=== PATIENT | female | born 1990 | race Two or more races ===

== ENCOUNTER 2018-07-26 08:45 | Observation (INO) | payer OTHER ==
[~2018-07-26] VITALS: Ht 177.8 cm; Wt 64.0 kg
[2018-07-26] VITALS (16 sets, daily range): BP systolic 107–138; BP diastolic 58–95
[~2018-07-26 08:45] MED LIST: Dexamethasone 20mg/5ml IVP ONE; ceFAZolin sod 1 GM in NS 55 ML IVPB ONE
[2018-07-26] MEDS ORDERED: LR 1000ml 1,000 ML IVLG SCH (08:50)
[2018-07-26] MEDS ORDERED: Acetaminophen (Non formulary) 100 ML IV ONE (09:00)
[2018-07-26] MEDS ORDERED: Hydromorphone 0.5mg/0.5ml inj IVP PRN (09:00)
[2018-07-26] MEDS ORDERED: LORazepam Inj 2mg/ml 1ml IV PRN (09:00)
[2018-07-26] MEDS ORDERED: Metoclopramide 10mg/2ml Inj IVP PRN (09:00)
[2018-07-26] MEDS ORDERED: HYDROcodone/Acetamin 5/325 tab ORAL PRN (09:00)
[2018-07-26] MEDS ORDERED: HYDROcodone/Acetamin 7.5/325 tab ORAL PRN (09:00)
[2018-07-26] MEDS ORDERED: Midazolam 2mg/2ml Inj IVP PRN (09:00)
[2018-07-26] MEDS ORDERED: Meperidine 50mg/ml Inj(FOR RIGORS ONLY) IVP PRN (09:00)
[2018-07-26] MEDS ORDERED: DiphenhydrAMINE 50mg/ml Inj IVP PRN (09:00)
[2018-07-26] MEDS ORDERED: Atropine Sulfate 0.4mg/ml inj IVP PRN (09:00)
[2018-07-26] MEDS ORDERED: Ketorolac 30mg Inj IV PRN ×2 (09:00)
[2018-07-26] MEDS ORDERED: oxyCODONE HCL/Acetaminophen 5/325mg ORAL PRN (09:00)
[2018-07-26] MEDS ORDERED: Labetalol 5mg/ml 20ml vial IV PRN (09:00)
[2018-07-26] MEDS ORDERED: fentaNYL 100 mcg/2 mL IV PRN (09:00)
[2018-07-26] MEDS ORDERED: Sodium Chloride 10ml vial INJ ONE (09:14)
[2018-07-26] MEDS ORDERED: Lidocaine 1% MPF 10mg/ml 5ml ONE ×2 (09:14→11:27)
[2018-07-26] MEDS ORDERED: NKM (09:16)
[2018-07-26] MEDS ORDERED: Bacitracin 50000 Units Vial ONE (09:19)
[2018-07-26] MEDS ORDERED: Gelfoam Size TOPIC ONE (09:19)
[2018-07-26] MEDS ORDERED: Thrombin 5000 units TOPIC ONE (09:19)
--- NOTE | 2018-07-26 09:19 | Pre-Procedure Note/Attestation ---
Pre-Procedure Note/Attestation Complete Prior to Procedure Planned Procedure: not applicable Procedure Narrative: ACDF possible ACDF C5-C6 Indications for Procedure Pre-Operative Diagnosis: Trauma Cervical HNP radiculopathy Attestation I attest that I discussed the nature of the procedure; its benefits; risks and complications; and alternatives (and the risks and benefits of such alternatives ), prior to the procedure, with the patient (or the patient's legal digital sales representative). I attest that, if there was a reasonable possibility of needing a blood transfusion, the patient (or the patient's legal digital sales representative) was given the [facility] standardized written summary, pursuant to the Jamal Colp Blood Safety Act ([place] Health and Safety Code # 1645, as amended). I attest that I re-evaluated the patient just prior to the surgery and that there has been no change in the patient's H&P, except as documented below: Karl Lynn MD July 26, 2018 09:19
--- NOTE | 2018-07-26 09:25 | NUR ---
IV LR WAS STARTED BY SHIV PRITCHARD RN. NO S/S OF INFILTRATION.
[2018-07-26] MEDS ORDERED: Chloraseptic Spray 20mL Bottle ORAL PRN (09:30)
[2018-07-26] MEDS ORDERED: Morphine Sulfate 2mg/ml Inj(IV/IM USE ONLY) IM PRN (09:30)
[2018-07-26] MEDS ORDERED: HYDROcodone/Acetamin 10/325 tab ORAL PRN (09:30)
[2018-07-26] MEDS ORDERED: Dexamethasone 20mg/5ml ONE (09:31)
[2018-07-26 09:33] LABS: APPEARANCE,URINE CLOUDY; BILIRUBIN, URINE NEGATIVE (NEGATIVE); GLUCOSE, URINE (UA) NEGATIVE (NEGATIVE); KETONES,URINE NEGATIVE (NEGATIVE); LEUKOCYTE ESTERASE ,URINE 3+ (NEGATIVE); NITRITE,URINE NEGATIVE (NEGATIVE); PH,URINE 5 (4.5-8.0); PROTEIN,URINE NEGATIVE (NEGATIVE); UROBILINOGEN,URINE NORMAL MG/DL (0.0-1.0)
[2018-07-26 09:35] LABS: COLOR,URINE YELLOW
[2018-07-26] MEDS ORDERED: Zemuron 50mg/5ml Inj IV ONE (09:35)
[2018-07-26] MEDS ORDERED: Lidocaine 1% Plain 30 ml INJ ONE (09:37)
[2018-07-26] MEDS ORDERED: fentaNYL 100 mcg/2 mL IV ONE ×3 (09:38→12:13)
[2018-07-26] MEDS ORDERED: Labetalol 5mg/ml 20ml vial IV ONE (09:45)
[2018-07-26] MEDS ORDERED: LR 1000ml ONE (09:45)
[2018-07-26] MEDS ORDERED: Sterile Water Irrig 1000ml IRRIG ONE ×2 (09:45→13:00)
[2018-07-26] MEDS ORDERED: NS Irrig 1000ml ONE ×2 (09:45→13:00)
--- NOTE | 2018-07-26 10:24 | Anethesia Preoperative Eval ---
Anesthesia Pre-op PMH/ROS General Date of Evaluation: July 26, 2018 Time of Evaluation: 09:41 Anesthesiologist: Pao ASA Score: ASA 1 Mallampati Score Class I : Soft palate, uvula, fauces, pillars visible Class II: Soft palate, uvula, fauces visible Class III: Soft palate, base of uvula visible Class IV: Only hard plate visible Mallampati Classification: Class I Surgeon: Leah Diagnosis: Neck Pain Surgical Procedure: ADR C5-6 Anesthesia History: none Family History: no anesthesia problems Allergies: Coded Allergies: No Known Allergies (Unverified , 07/24/18) Medications: see eMAR Patient NPO?: Yes NPO Date: July 25, 2018 NPO Time: 9 Past Medical History Neurologic/Psychiatric: Reports: depression/anxiety, other - Migranes Anesthesia Pre-op Phys. Exam Physician Exam Last Vital Signs Date Time Temp Pulse Resp B/P (MAP) Pulse Ox O2 Delivery O2 Flow Rate FiO2 07/26/18 09:37 97.7 62 20 111/69 (83) 99 07/26/18 09:25 Room Air Constitutional: NAD Neurologic: CN 2-12 intact Cardiovascular: RRR Respiratory: CTA Gastrointestinal: S/NT/ND Airway Exam Mallampati Score: Class I MO: full ROM: limited Teeth: intact Anesthesia Pre-op A/P Labs Urine Test Test 07/26/18 08:55 Urine HCG, Qualitative Negative (NEGATIVE) Risk Assessment & Plan Assessment: ASA 1 Plan: GA, SED, GlideScope Go Status Change Before Surgery: No Pre-Antibiotics Dru Grams Ancef IV Given Within 1 Hr of Incision: Yes Time Given: 10:01 Trey Cedeno MD July 26, 2018 10:24
--- NOTE | 2018-07-26 10:30 | Immediate Post-Op Evaluation ---
Immediate Post-Op Evalulation Immediate Post-Op Evalulation Procedure: ADR C5-6 Date of Evaluation: July 26, 2018 Time of Evaluation: 12:38 IV Fluids: 1000 LR Blood Products: 0 Estimated Blood Loss: 55 Urinary Output: 0 Blood Pressure Systolic: 138 Blood Pressure Diastolic: 95 Pulse Rate: 77 Respiratory Rate: 16 O2 Sat by Pulse Oximetry: 100 Temperature (Fahrenheit): 97 Pain Score (1-10): 2 Nausea: No Vomiting: No Complications 0 Patient Status: awake, reacts, patent, extubated, none Hydration Status: adequate Dru grams Ancef IV Given Within 1 Hr of Incision: Yes Time Given: 10:01 Trey Cedeno MD July 26, 2018 10:30
[2018-07-26] MEDS ORDERED: Neostigmine 1mg/ml 10ml Inj ONE (11:42)
[2018-07-26] MEDS ORDERED: Glycopyrrolate 0.2mg/ml 1ml Vial ONE (11:42)
[2018-07-26] MEDS ORDERED: Naloxone 0.4mg/ml Inj ONE (11:49)
--- NOTE | 2018-07-26 12:06 | Brief Operative Note ---
Immediate Post Operative Note Operative Note Pre-op Diagnosis: Trauma Cervical HNP radiculopathy Procedure: ADR C5-C6 SSEP Magnification Xray Post-op Diagnosis: same as pre-op Findings: consistent w/pre-op dx studies Surgeon: Leah LYMAN [employer]: Christine AVELAR Anesthesiologist: Pao LYMAN Anesthesia: general Specimen: yes Complications: none Condition: stable Fluids: anesthesia Estimated Blood Loss: minimal Drains: none Implant(s) used?: Yes Karl Lynn MD July 26, 2018 12:06
[2018-07-26] MEDS ORDERED: Naloxone 0.4mg/ml Inj IVP PRN (12:15)
--- NOTE | 2018-07-26 13:45 | NUR ---
NURSE NOTES: Patient received from PACU via bed to 318-1 on O2 2LNC. Patient alert, oriented x4, calm. VSS. Anterior neck surgical site dressing CDI, ice pack in place. Bilateral SCDs on. CMS+, skin warm, wiggles toes, pedal pulses palpable, no NT, capillary refill <3 seconds, hand grasps equal/strong, pedal pushes fair 3/5, equal. Reports pain to anterior/posterior neck 8/10, will medicate as ordered. Called RT for IS. No NV. Sister at bedside. Oriented patient to room and call light. IVF infusing to left wrist as ordered. Call light in reach, bed in lowest position, will continue to monitor.
[2018-07-26] MEDS ORDERED: D5 1/2NS 1000ml IV ONE (13:48)
[2018-07-26] MEDS ORDERED: Tubing IV Secondary IV ONE (13:48)
[2018-07-26] MEDS ORDERED: Dronabinol 2.5mg Cap ORAL SCH ×4 (14:00→22:00)
[2018-07-26] MEDS ORDERED: D5 1/2NS 1,000 ML IV SCH (14:00)
--- NOTE | 2018-07-26 14:00 | NUR ---
NURSE NOTES: Patient refused to have pain medication prescription bottle, [place] 10 mg, to be sent down to pharmacy, states her sister will hold it and she will not take any medication from that bottle.
--- NOTE | 2018-07-26 14:27 | Diagnostic Imaging Report ---
Indication: Intraoperative imaging Findings: 3 fluoroscopic views of the cervical spine were obtained. Localization image followed by anterior cervical discectomy and prosthesis placement at C5-6 noted. IMPRESSION: Intraoperative imaging
--- NOTE | 2018-07-26 15:30 | NUR ---
NURSE NOTES: Patient reports Morphine 4mg IM was not effective. Offered [place] 10 mg, patient refused. Provided ice pack to both anterior and posterior neck. Called Dr. Ruiz and Dr. Lynn for further instructions, awaiting manager of operations back.
--- NOTE | 2018-07-26 15:32 | NUR ---
CHARGE NURSE NOTES: Pt complaint of severe pain unrelieved by morphine. left message to Dr Ruiz, will await callback. JIMY Martinez made aware.
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
--- NOTE | 2018-07-26 18:15 | NUR ---
NURSE NOTES: Spoke with Dr. Ruiz. Reviewed administered PRN and scheduled medications, activity, diet, pain level/non-pharmacological measures. See new orders, will medicate as ordered. Patient instructed and provided written material on log rolling and proper body mechanics. Assisted patient to bathroom, gait steady. Voided y/cl urine without difficulty. Chloraseptic placed at bedside, instructed patient on use, verbalized understanding. Will continue to monitor.
[2018-07-26] MEDS ORDERED: HYDROmorphone 1mg/ml Carpuject SUBQ SCH (18:30)
--- NOTE | 2018-07-26 18:30 | Operative Note - Dictated ---
DATE OF OPERATION: 07/26/2018 SURGEON: Karl Lynn, Ph.D., M.D. AUTOMATIC FABRIC CUTTER: VALENTINO Arboleda ANESTHESIOLOGIST: Dr. Cedeno. ANESTHESIA: General anesthesia with intubation. 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 OPERATIVE PROCEDURES: 1. Anterior cervical artificial disk replacement, [employer]. 2. SSEP monitoring. 3. Intraoperative fluoroscopy interpreted by surgeon. 4. High-power magnification dissection. ESTIMATED BLOOD LOSS: Minimal. COMPLICATIONS: None. POSTOPERATIVE CONDITION: Good/stable. SPECIMENS: Disk fragments to pathology. DESCRIPTION OF PROCEDURE: The patient was brought to the operating room and in supine position, general anesthesia with intubation was induced. IV antibiotics, IV Decadron were administered 30 minutes prior to incision time. Incision level placement determined with placement of markers overlying the skin on the right side of the neck. Cross-table imaging obtained and interpreted by surgeon. Left side marked appropriately and sterilely prepped and draped free in usual sterile fashion. A transverse incision as previously marked was sharply placed through dermis and epidermis and skin fold left lateral. Electrocautery dissection through subcutaneous tissue. Platysmas muscle identified and isolated, transected in line with the incision. Blunt dissection medial to the left sternocleidomastoid muscle and medial to the carotid sheath through the deep cervical pretracheal fascia to the midline between the right and left longus colli muscles. Spinal needle bent at 90-degree angles to avoid penetration into the disk space greater than 3 mm, was placed under high-power magnification into the disk space. A cross-table imaging was obtained and interpreted by surgeon as correct level. Level was marked. Retractors placed deep to the longus coli muscles, were subperiosteal elevated, no greater than 3 mm in the mediolateral extent. Confirmation of interval with a needle replaced into the disk space undertaken. Annulotomy followed diskectomy to the posterior longitudinal ligament. Posterior longitudinal ligament resected with decompression of spinal cord. Foraminotomies. Denuding with [place] Bro bur dissection in combination with curettage of the endplates of cartilage. Subchondral bone maintained. Appropriate steps undertaken by manufacture for implantation of the cervical artificial disk. Trials were undertaken sequentially in depth. SSEP monitoring stable. Of note is that all trials contain stops to avoid over penetration. Appropriate prosthesis, floated, checked, implanted. Implant excellent in AP and lateral planes. Of note is that prior to appropriate cutting in preparation for artificial disk replacement insertion, guide was undertaken in the AP and lateral planes for midline. Imaging, AP and lateral revealed excellent positioning of a artificial disk. Wound was irrigated with antibiotic-containing saline. No obvious excoriation or laceration of vital structures. No CSF leak at any time during the procedure. FloSeal applied. Reapproximation sequentially of platysmas muscle and dermis/epidermis followed by surgical strips. Sterile bands applied, maintained in place with tape. The patient was awakened, extubated in the operating room, transported to postop recovery in good stable condition. Karl Lynn M.D. DR: ANGELA/NORMAN JOB#: [id number] CC:
[2018-07-26] MEDS: ceFAZolin sod 1 GM in D5W 55 ML IV SCH (18:33)
--- NOTE | 2018-07-26 19:15 | NUR ---
NURSE NOTES: Medicated with one time dose of Dilaudid 1 mg SQ and Marinol PO additional dose, pain 8/10 at this time. Ice packs replaced with fresh ice. Will continue to monitor.
--- NOTE | 2018-07-26 19:40 | NUR ---
NURSE NOTES: Received report from JIMY Martinez. Patient resting in bed, sister at bedside. Bed in low position, locked, side rails up x2. Call light within reach. Anterior neck dressing dry and intact. Will continue to monitor.
--- NOTE | 2018-07-26 19:45 | NUR ---
HAND-OFF: Report given to Deanna AHN.
--- NOTE | 2018-07-26 20:20 | NUR ---
NURSE NOTES Dr Ruiz called in to check on patient. Patient's pain is 8-9/10 at this moment, will give [place] as ordered. See eMAR.
[2018-07-26] MEDS: HYDROcodone/Acetamin 10/325 tab ORAL PRN (20:31)
--- NOTE | 2018-07-26 20:50 | NUR ---
NURSE NOTES: Dr Ruiz called in to follow up on patient. Notified that patient doesn't feel ready to go home just yet and that [place] was given. New orders were placed by Dr Ruiz shortly ago. Plan discussed: reassess pain and give Marinol at 2130 if patient is not drowsy. Soma and Dilaudid are also options to consider later tonight. See new MD orders.
[2018-07-26] MEDS: D5 1/2NS 1,000 ML IV SCH (21:01)
--- NOTE | 2018-07-26 21:30 | NUR ---
NURSE NOTES: Unable to withdraw 2130 scheduled pain med from [facility] at this time. Pharmacy notified, will re enter med.
--- NOTE | 2018-07-26 22:06 | NUR ---
NURSE NOTES: Patient resting in bed, respirations even, unlabored, 18 per min. Alert, awake and oriented. States her pain "is more like 13". Given Marinol per order. Icepack anterior and posterio neck. Patient using Chloraseptic spray as well for throat discomfort. Watching TV with sister. Will continue to monitor.
[2018-07-26] MEDS ORDERED: HYDROmorphone 1mg/ml Carpuject SUBQ PRN (22:30)
--- NOTE | 2018-07-26 23:16 | NUR ---
NURSE NOTES: Patient sitting in bed, icepack on anterior and posterior neck. Ambulated earlier to bathroom with assist, voided without difficulty. Daniel fairly well. States lowest pain is at 8 but comes up to 10 when she had to get up to bathroom. Resp 19, HR 62. Slightly drowsy, but easily awakened, will continue to assess. Patient also stated that would rather wait for next pain med.
[2018-07-27] VITALS: BP 112/67
[2018-07-27] MEDS: ceFAZolin sod 1 GM in D5W 55 ML IV SCH ×2 (01:33→09:28)
[2018-07-27] MEDS: HYDROcodone/Acetamin 10/325 tab ORAL PRN ×3 (01:35→11:12)
[2018-07-27 04:00] VITALS: BP 102/63
--- NOTE | 2018-07-27 04:49 | NUR ---
NURSE NOTES: Pt asleep, resp unlabored.
[2018-07-27] MEDS: D5 1/2NS 1,000 ML IV SCH ×2 (05:01→13:01)
[2018-07-27] MEDS: Dronabinol 2.5mg Cap ORAL SCH ×2 (05:42→13:12)
--- NOTE | 2018-07-27 06:32 | NUR ---
NURSE NOTES: Pt had nausea a couple of times during the night, no vomiting. No nausea at this time. Given [place] for pain 10/20. Patient doing incentive spirometer exercises. Will continue to monitor.
--- NOTE | 2018-07-27 06:47 | 48 Hour Post Anesthesia Eval ---
Post Anesthesia Evaluation Procedure: ADR C5-6 Date of Evaluation: July 27, 2018 Airway: patent Nausea: Yes Vomiting: No Pain Intensity: 0 Hydration Status: adequate Cardiopulmonary Status: at baseline Mental Status/LOC: patient returned to baseline Post-Anesthesia Complications: 0 Follow-up care needed: N/A - further care as per primary team Charmaine Corona MD July 27, 2018 06:47
--- NOTE | 2018-07-27 07:50 | NUR ---
NURSE NOTES: Received report from JIMY Huerta. Rounding done with outgoing nurse. Patient a/o x4 lying on the bed. Sister is at bedside. Denies any pain at this time. Patient stat she can go home this afternoon. Patient seen by Dr. Ruiz. Bed in lowest position, call light within reach. Will continue to monitor.
[2018-07-27 08:00] VITALS: BP 95/53
[2018-07-27 12:00] VITALS: BP 105/61
[2018-07-27] MEDS ORDERED: NORCO 10-325 T1 EACH ORAL (14:45)
--- NOTE | 2018-07-27 15:05 | NUR ---
NURSE NOTES: Discharge instruction was given. Belongings checked with pt and was given. Proper body mechanism instruction was given. IV line and arm band were removed. Patient discharged with sister in stable condition.
--- NOTE | 2018-07-27 16:15 | Progress Note ---
ACUTE PAIN MANAGEMENT PHYSICIAN PROGRESS NOTE DATE: 07/27/2018 MEDICATIONS: Medication administration record reviewed. Medications include IV fluids, Pepcid, antibiotics, and Marinol. PRN medications include Benadryl, Soma, Chloraseptic spray, Zofran, Mylanta, Phenergan, Tylenol, Narcan, [place], and Dilaudid. LABORATORY STUDIES: From yesterday, 07/26/2018 shows few bacteria, 3+ leukocyte esterase, negative nitrite. Vital signs - afebrile, pulse 60, respirations 16, blood pressure 102/63, oxygen saturation 100%. I spent over 60 minutes in consultation for the past 24 hours. I had multiple discussions with the night nurse, RNDeanna along with the day shift nurse, JIMY Lucas. After yesterday's cervical spine instrumentation surgery with artificial disc replacement at C5-C6, the patient was in severe pain. She was trialed on multiple doses of Dilaudid and [place]. She stated that her pain was excruciating and unrelieved. We trialed Chloraseptic spray, but still does not have any good relief. Therefore, the patient will remain in the hospital for more aggressive analgesic treatment. Serial dosing of Marinol, Dilaudid injections, [place] in varying tablets along with Soma were used. Finally her pain levels became more bearable. She has been able to move in and out of bed to the restroom. She is tolerating good oral intake especially with water. She has normal vital signs and was able to sleep for several hours with the increased analgesic regimen. I expect the patient should be able to discharge home later today. Her sister remains at the bedside providing good social support and also we will transport patient home. The surgical wound in her anterior neck appears clean and dry. There is normal postoperative swelling. The patient was counseled once again to stop smoking and to be wary not to over medicate with narcotics at home. The patient understood and agreed to comply. Umang Ruiz M.D. DR: RAJAT JOB#: [id number] CC:
== END 2018-07-27 15:05 | disposition home or self-care (01) ==
LOC: SUR 08:45 → 3E 13:47
DX: M50.122 Cervical disc disorder at C5-C6 level with radiculopathy (principal); F17.210 Nicotine dependence, cigarettes, uncomplicated; F12.90 Cannabis use, unspecified, uncomplicated; F32.9 Major depressive disorder, single episode, unspecified; F41.9 Anxiety disorder, unspecified
CPT/HCPCS: 22856; 36415; 72040; 76000; 81001; 81025; 86850; 86900; 86901; 87081; 87086; 96360; 96361; 96365; G0378; J0690; J1100; J1170; J2001; J2175; J2250; J2270; J2310; J2405; J2710; J3010; 94003; 94150

== ENCOUNTER 2019-04-26 05:10 | Observation (INO) | payer OTHER ==
[~2019-04-26] VITALS: Ht 177.8 cm; Wt 58.5 kg
[2019-04-26] VITALS (13 sets, daily range): BP systolic 91–127; BP diastolic 50–85
[~2019-04-26 05:10] MED LIST changes: -Dexamethasone 20mg/5ml IVP ONE; +NKM; +NORCO 10-325 T1 EACH ORAL; -ceFAZolin sod 1 GM in NS 55 ML IVPB ONE
[2019-04-26] MEDS ORDERED: Rocuronium Bromide 50mg/5ml Inj IV ONE (06:42)
[2019-04-26] MEDS ORDERED: Gelfoam Size TOPIC ONE (06:52)
[2019-04-26] MEDS ORDERED: Sodium Chloride 10ml vial INJ ONE (06:53)
[2019-04-26] MEDS ORDERED: Bupivacaine 0.5% Inj 30 ml vial INJ ONE (06:53)
[2019-04-26] MEDS ORDERED: Dexamethasone 4mg/ml vial ONE (06:53)
[2019-04-26] MEDS ORDERED: Bacitracin 50000 Units Vial ONE (06:53)
[2019-04-26] MEDS ORDERED: Lidocaine 1% MPF 10mg/ml 5ml ONE (06:53)
[2019-04-26] MEDS ORDERED: fentaNYL 100 mcg/2 mL IV ONE ×2 (06:54→08:08)
[2019-04-26] MEDS ORDERED: LR 1000ml 1,000 ML IVLG SCH (06:58)
[2019-04-26] MEDS ORDERED: Lidocaine 1% Plain 30 ml INJ ONE ×2 (06:59→08:48)
[2019-04-26] MEDS ORDERED: ceFAZolin sod 1 GM in NS 55 ML IVPB ONE (07:00)
[2019-04-26] MEDS ORDERED: Labetalol 5mg/ml 20ml vial IV ONE (07:00)
[2019-04-26] MEDS ORDERED: Propofol 1,000mg/ 100ml btl IV ONE (07:00)
[2019-04-26] MEDS ORDERED: Labetalol 5mg/ml 20ml vial IV PRN (07:00)
[2019-04-26] MEDS ORDERED: Atropine Sulfate 0.4mg/ml inj IVP PRN (07:00)
[2019-04-26] MEDS ORDERED: NS Irrig 1000ml ONE (07:00)
[2019-04-26] MEDS ORDERED: HYDROcodone/Acetamin 7.5/325 tab ORAL PRN (07:00)
[2019-04-26] MEDS ORDERED: Acetaminophen (Non formulary) 100 ML IV ONE (07:00)
[2019-04-26] MEDS ORDERED: Hydromorphone 0.5mg/0.5ml inj IVP PRN (07:00)
[2019-04-26] MEDS ORDERED: fentaNYL 100 mcg/2 mL IV PRN (07:00)
[2019-04-26] MEDS ORDERED: Meperidine 25mg/0.5ml Inj (FOR RIGORS ONLY) IV PRN (07:00)
[2019-04-26] MEDS ORDERED: Ketorolac 30mg Inj IV PRN ×2 (07:00)
[2019-04-26] MEDS ORDERED: LORazepam Inj 2mg/ml 1ml IV PRN (07:00)
[2019-04-26] MEDS ORDERED: Dexamethasone 20mg/5ml IVP ONE (07:00)
[2019-04-26] MEDS ORDERED: HYDROcodone/Acetamin 5/325 tab ORAL PRN (07:00)
[2019-04-26] MEDS ORDERED: oxyCODONE HCL/Acetaminophen 5/325mg ORAL PRN (07:00)
[2019-04-26] MEDS ORDERED: Midazolam 2mg/2ml Inj IVP PRN (07:00)
[2019-04-26] MEDS ORDERED: LR 1000ml ONE (07:00)
[2019-04-26] MEDS ORDERED: DiphenhydrAMINE 50mg/ml Inj IVP PRN (07:00)
[2019-04-26] MEDS ORDERED: Sterile Water Irrig 1000ml IRRIG ONE (07:00)
--- NOTE | 2019-04-26 07:01 | Anethesia Preoperative Eval ---
Anesthesia Pre-op PMH/ROS General Date of Evaluation: Apr 26, 2019 Time of Evaluation: 07:06 Anesthesiologist: Pao ASA Score: ASA 1 Mallampati Score Class I : Soft palate, uvula, fauces, pillars visible Class II: Soft palate, uvula, fauces visible Class III: Soft palate, base of uvula visible Class IV: Only hard plate visible Mallampati Classification: Class I Surgeon: Leah Diagnosis: Neck Pain Surgical Procedure: C5-6 ADR Removal, ACDF C5-6 Anesthesia History: none Family History: no anesthesia problems Allergies: Coded Allergies: No Known Allergies (Unverified , 07/24/18) Medications: see eMAR Patient NPO?: Yes NPO Date: Apr 25, 2019 NPO Time: 1230 Past Medical History Neurologic/Psychiatric: Reports: depression/anxiety, other - Migranes Anesthesia Pre-op Phys. Exam Physician Exam Last Vital Signs Date Time Temp Pulse Resp B/P (MAP) Pulse Ox O2 Delivery O2 Flow Rate FiO2 04/26/19 05:56 Room Air 04/26/19 05:45 98.1 73 18 119/85 (96) 98 Constitutional: NAD Neurologic: CN 2-12 intact Cardiovascular: RRR Respiratory: CTA Gastrointestinal: S/NT/ND Airway Exam Mallampati Score: Class I MO: full ROM: limited Teeth: intact Anesthesia Pre-op A/P Labs Urine Test Test 04/26/19 05:20 Urine HCG, Qualitative Negative (NEGATIVE) Risk Assessment & Plan Assessment: ASA 1 Plan: GA, SED, GlideScope Go Status Change Before Surgery: No Pre-Antibiotics Dru Grams Ancef IV Given Within 1 Hr of Incision: Yes Time Given: 07:31 Trey Cedeno MD Apr 26, 2019 07:01
--- NOTE | 2019-04-26 07:02 | Immediate Post-Op Evaluation ---
Immediate Post-Op Evalulation Immediate Post-Op Evalulation Procedure: C5-6 ADR Removal, ACDF C5-6 Date of Evaluation: Apr 26, 2019 Time of Evaluation: 10:14 IV Fluids: 700 LR Blood Products: 0 Estimated Blood Loss: 30 Urinary Output: 0 Blood Pressure Systolic: 125 Blood Pressure Diastolic: 77 Pulse Rate: 53 Respiratory Rate: 16 O2 Sat by Pulse Oximetry: 100 Temperature (Fahrenheit): 97.7 Pain Score (1-10): 3 Nausea: No Vomiting: No Complications 0 Patient Status: awake, reacts, patent, extubated, none Hydration Status: adequate Dru grams Ancef IV Given Within 1 Hr of Incision: Yes Time Given: 07:31 Trey Cedeno MD Apr 26, 2019 07:02
[2019-04-26] MEDS ORDERED: Thrombin 5000 units TOPIC ONE (07:10)
--- NOTE | 2019-04-26 07:26 | Pre-Procedure Note/Attestation ---
Pre-Procedure Note/Attestation Complete Prior to Procedure Planned Procedure: not applicable Procedure Narrative: ADR C5-C6 removal ACDF C5-C6 anterior plate %-C6 scar Indications for Procedure Pre-Operative Diagnosis: ADR displacement Attestation I attest that I discussed the nature of the procedure; its benefits; risks and complications; and alternatives (and the risks and benefits of such alternatives ), prior to the procedure, with the patient (or the patient's legal call center representative). I attest that, if there was a reasonable possibility of needing a blood transfusion, the patient (or the patient's legal call center representative) was given the [facility] standardized written summary, pursuant to the Ajmal Humptulips Blood Safety Act ([place] Health and Safety Code # 1645, as amended). I attest that I re-evaluated the patient just prior to the surgery and that there has been no change in the patient's H&P, except as documented below: Karl Lynn MD Apr 26, 2019 07:26
[2019-04-26] MEDS ORDERED: Glycopyrrolate 0.2mg/ml 1ml Vial ONE (09:15)
[2019-04-26] MEDS ORDERED: Neostigmine 1mg/ml 10ml Inj ONE (09:15)
[2019-04-26] MEDS ORDERED: Meperidine 50mg/ml Inj(FOR RIGORS ONLY) ONE (09:46)
--- NOTE | 2019-04-26 09:46 | Brief Operative Note ---
Immediate Post Operative Note Operative Note Pre-op Diagnosis: ADR displacement Procedure: C5-C6: Operation through scar Removal ADR ACDF Interbody device titanium anterior plate osteopromotive material SSEP Magnification Xray Post-op Diagnosis: same Post-op Diagnosis: same as pre-op Surgeon: Leah LYMAN Building Supervisor: Christine AVELAR Anesthesiologist: Pao LYMAN Anesthesia: general Specimen: yes Complications: none Condition: stable Fluids: anesthesia Estimated Blood Loss: minimal Drains: none Implant(s) used?: Yes Karl Lynn MD Apr 26, 2019 09:46
--- NOTE | 2019-04-26 10:01 | 48 Hour Post Anesthesia Eval ---
Post Anesthesia Evaluation Procedure: C5-6 ADR Removal, ACDF C5-6 Date of Evaluation: Apr 26, 2019 Time of Evaluation: 12:34 Blood Pressure Systolic: 121 0: 73 Pulse Rate: 67 Respiratory Rate: 18 Temperature (Fahrenheit): 98.2 O2 Sat by Pulse Oximetry: 100 Airway: patent Nausea: No Vomiting: No Pain Intensity: 3 Hydration Status: adequate Cardiopulmonary Status: Stable Mental Status/LOC: patient returned to baseline Follow-up Care/Observations: 0 Post-Anesthesia Complications: 0 Follow-up care needed: N/A Trey Cedeno MD Apr 26, 2019 10:01
--- NOTE | 2019-04-26 11:30 | NUR ---
NURSE NOTES: Kaur RN brought patient by bed in stable condition. Alert and oriented x4. Complain of pain 8/10 on surgical site and pain medication given by PACU nurse. Will continue to monitor. Skin intact and dry. Surgical dressing intact and dry. IV dressing intact and dry. Belonging given to family member. Bed lowest position. Call light within reach. Will continue to monitor.
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
[2019-04-26] MEDS: Morphine Sulfate 4mg/ml Inj (IV USE ONLY) IM PRN ×2 (12:37→16:10)
[2019-04-26] MEDS ORDERED: Dronabinol 2.5mg Cap ORAL SCH (13:00)
[2019-04-26] MEDS ORDERED: DiphenhydrAMINE 25mg Tab ORAL PRN (13:00)
[2019-04-26] MEDS ORDERED: HYDROmorphone 1mg/ml Carpuject SUBQ PRN (13:00)
[2019-04-26] MEDS ORDERED: HYDROcodone/Acetamin 10/325 tab ORAL PRN (13:00)
[2019-04-26] MEDS ORDERED: D5 1/2NS 1,000 ML IV SCH (13:00)
[2019-04-26] MEDS ORDERED: Chloraseptic Spray 20mL Bottle ORAL PRN (13:00)
--- NOTE | 2019-04-26 13:56 | NUR ---
PT EVALUATION NOTE Patient seen for initial evaluation. Patient presents with pain and impaired functional mobility s/p cervical surgery. Patient educated in cervical precautions and log roll technique for in/OOB. Patient required CGA/min assist for bed mobility and transfers, soft cervical collar when OOB. Patient with noted shaking of body in sitting and in standing with eyes closing. Patient unable to ambulate due to shaking, weakness and impaired standing balance. Patient will benefit from skilled inpatient PT intervention to address strength, balance and safety for increased level of independence with functional mobility. Addendum: 04/26/19 at 1358 by AMIRAH APONTE PT Amended: Links added.
--- NOTE | 2019-04-26 14:31 | Diagnostic Imaging Report ---
Indication: Intraoperative imaging COMPARISON: None FINDINGS: Multiple fluoroscopic images were obtained intraoperatively. Localization images followed by anterior discectomy and fusion at C5-6 noted on multiple views IMPRESSION: Intraoperative imaging as described above
--- NOTE | 2019-04-26 15:00 | NUR ---
NURSE NOTES: Patient went to restroom with assist and void. No complain of discomfort. Will continue to monitor.
[2019-04-26] MEDS ORDERED: ceFAZolin sod 1 GM in D5W 55 ML IV SCH (15:30)
--- NOTE | 2019-04-26 16:00 | NUR ---
NURSE NOTES: Patient ambulated with assist. No complain of dizziness or discomfort. Patient tolerated activity well. Will continue to monitor.
--- NOTE | 2019-04-26 17:25 | NUR ---
NURSE NOTES: Patient discharged with friend in stable condition. Discharge instruction given to patient and verbalized understanding. Instructed to follow up with MD and verbalized understanding. Belonging given to patient. IV and ID removed. Patient ambulated out with all personal belongings with steady gait.
--- NOTE | 2019-04-26 17:30 | Operative Note - Dictated ---
DATE OF OPERATION: 04/26/2019 SURGEON: Karl Lynn M.D. TARIFF CLERK: VALENTINO Cornejo. ANESTHESIOLOGIST: Trey Cedeno M.D. ANESTHESIA: General with intubation. ADMITTING/PREOPERATIVE DIAGNOSIS: Migration, artificial disk replacement, cervical spine. POSTOPERATIVE DIAGNOSIS: Migration, artificial disk replacement, cervical spine. OPERATIVE PROCEDURE: 1. Anterior cervical approach C5-C6 through scar tissue. 2. Excision of artificial disk replacement, C5-C6. 3. Zay-vertebrectomy, inferior C5 and superior C6. 4. Interpositional grafting with titanium implant, lordotic. 5. Placement of osteopromotive material with local autograft C5-C6. 6. SSEP monitoring. 7. Anterior internal plate fixation C5, C6. 8. Intraoperative fluoroscopy interpreted by surgeon. 9. High-powered magnification dissection. ESTIMATED BLOOD LOSS: Minimal. COMPLICATIONS: None. POSTOP CONDITION: Good/stable. SPECIMEN: Artificial excised disk to pathology, gross only. DESCRIPTION OF PROCEDURE: The patient was brought to the operating room and in the supine position, general anesthesia intubation was induced. IV antibiotics and IV Decadron were administered 30 minutes prior to incision time. On a preoperative basis, vocal cord clearance had been obtained allowing contralateral approach relative to the initial left lateral approach. Markers were placed overlying the skin. Cross-table image was obtained demonstrating the correct level for incision placement right. Markers were placed on the left side of the neck, not the right side during fluoroscopic imaging. This was so as to avoid any tape residue on the skin. Level was marked in a skin fold on the right lateral aspect of the neck, transverse. Anterior cervical spine was sterilely prepped and draped free in usual sterile fashion. Marking pen was sterile. A transverse incision was marked, was placed sharply through dermis and epidermis. Electrocautery dissection was carried through the subcutaneous tissue to the level of the platysmas muscle, was identified, isolated, and transected in line with the incision. Dissection was carried through the deep cervical pretracheal fascia medial to the right sternocleidomastoid muscle and carotid sheath. Midline scar tissue identified. Careful dissection under high-power magnification from lateral to medial without violation of vital structures. Retractors placed. The anterior displacement of the disk was encountered. Distraction pins were placed C5, C6, 14 mm pins with distraction placed across the interval. Under high-power magnification, the disk was removed. Zay-vertebrectomy, inferior C5 and superior C6 to the posterior aspect of the vertebral bodies. Of note is that the posterior longitudinal ligament/anulus had been resected during the artificial disk replacement. No dural tears or leaks occurred anytime during the procedure. SSEP monitoring noted to be stable at all times. Appropriate trials utilized, determination of appropriate graft size lordotic. Graft obtained sterile, packed with local autograft in combination with osteopromotive material, tamped into position under high-power magnification. A cross-table image obtained demonstrating the correct alignment, positioning, and dept. Of note is that the wheelage clerk attached to the intervertebral device with "stops" so as to avoid graft placement posterior to the anterior vertebral body cortices. Cross-table image obtained demonstrating excellent alignment was followed with removal of the traction pins. All traction on the neck was removed. Anterior internal plate fixation in compressive fashion was placed with 14 mm screws locked into position, purchase excellent. Imaging revealed excellent alignment and positioning. Imaging obtained in the AP and lateral planes. Wound irrigated copiously with antibiotic-containing saline. Exploration revealed no obvious excoriation or laceration of vital structures. FloSeal applied. Reapproximation of platysmas muscle followed with subcuticular closure, dermis and epidermis, and transverse surgical strips. Sterile bandage applied, maintained in place with tape. The patient was awakened and extubated in the operating room and transported to postop recovery in good, stable condition. Karl Lynn M.D. DR: ZACARIAS JOB#: [id number] CC:
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
== END 2019-04-26 17:25 | disposition home or self-care (01) ==
LOC: SUR 05:10 → 3E 12:22 → UNDODISOB 17:25
DX: T84.028A Dislocation of other internal joint prosthesis, initial encounter (principal); Y83.1 Surgical operation with implant of artificial internal device as the cause of abnormal reaction of the patient, or of later complication, without mention of misadventure at the time of the procedure; G89.18 Other acute postprocedural pain; G89.28 Other chronic postprocedural pain; G43.909 Migraine, unspecified, not intractable, without status migrainosus; F41.8 Other specified anxiety disorders; F17.200 Nicotine dependence, unspecified, uncomplicated
CPT/HCPCS: 20931; 20936; 22551; 22845; 22854; 22864; 36415; 63081; 63082; 69990; 72040; 76000; 81025; 86850; 86900; 86901; 97162; 97530; C1713; G0378; J0131; J0690; J1100; J1170; J2001; J2175; J2250; J2270; J2704; J2710; J3010; J7120; 94003; 94150